=== PATIENT | female | born 2000 | race Caucasian/White ===

== ENCOUNTER → 2018-10-24 18:30 | Outpatient (REF) | payer OTHER, MEDICAID, SELFPAY | LOC: LAB 18:30 | PROVIDERS: Visit Provider Physician Assistant Medical | DX: N39.0 Urinary tract infection, site not specified (principal) | CPT/HCPCS: 87077; 87086; 87186 ==

== ENCOUNTER 2019-08-29 13:39 | Emergency (ER) | payer OTHER, MEDICAID, SELFPAY ==
[2019-08-29 13:55] VITALS: BP 135/87; PULSE 83; RESP 15; TEMP 37.3; O2SAT 100; BMI 41.3
[2019-08-29 15:18] VITALS: BP 122/71; PULSE 78; PULSE 80; O2SAT 99
--- NOTE | 2019-08-29 15:25 | ED_ITS ---
HPI - <ARSH Pagan - Last Filed: 08/29/19 21:25> General Chief complaint: OB/Uterine Contractions Stated complaint: bleeding at 8weeks preg Time Seen by Provider: 08/29/19 14:14 Source: patient Mode of arrival: Ambulatory Limitations: no limitations History of Present Illness HPI Narrative: 19-year-old female A1, who is currently 8 weeks , presents to the emergency department for reports of vaginal bleeding that lasted 1 to 5 minute last evening. She states it occurred after she had sexual intercourse. She states she has not had any bleeding since. She denies any pain, cramping, nausea, vomiting, fevers, chills, or other concerns at that time. Patient continues to denies symptoms at this time. She reports she is currently taking a vitamin but denies any other medications or significant medical history. Related Data Home Medications Medication Instructions Recorded Confirmed prenat.vits,trinity,[id number] 1 tab PO DAILY 09/08/19 09/08/19 Allergies Allergy/AdvReac Type Severity Reaction Status Date / Time No Known Drug Allergies Allergy Verified 08/29/19 13:55 Review of Systems <ARSH Pagan - Last Filed: 08/29/19 21:25> Review of Systems Narrative: REVIEW OF SYSTEMS: GENERAL: Denies fever, chills, malaise, or wt. loss. HENT: No head trauma. EYES: No vision changes. CARDIOVASCULAR: No chest pain. RESPIRATORY: No shortness of breath or cough. GASTROINTESTINAL: Denies abdominal pain. GENITOURINARY: No flank pain, urinary incontinence, hesitancy, frequency, or dysuria. Reports an episode of vaginal bleeding last night, see HPI. MUSCULOSKELETAL: No pain, weakness, or trauma. INTEGUMENTARY: No rash, lesions, or pruritus. NEURO: No numbness, tingling, memory loss, confusion, or headaches. PSYCH: No behavior or mood changes. PMFSH - <ARSH Pagan - Last Filed: 08/29/19 21:25> Past Medical History Medical history: Reports non-contributory Family History Family history: Reports no significant family history Exam <ARSH Pagan - Last Filed: 08/29/19 21:25> Initial Vital Signs Initial Vital Signs: Vital Signs Temperature 99.1 F 08/29/19 13:55 Pulse Rate 83 08/29/19 13:55 Respiratory Rate 15 08/29/19 13:55 Blood Pressure 135/87 08/29/19 13:55 Pulse Oximetry 100 08/29/19 13:55 PHYSICAL EXAMINATION: GENERAL: Well groomed, alert, and cooperative. Answers questions promptly and appropriately. Vital signs noted. HENT: Normocephalic, atraumatic. Hearing intact. Oral mucosa is pink and moist. EYES: Conjunctiva pink, sclera white, no periorbital swelling. CARDIOVASCULAR: S1 and S2 sounds normal. Regular rate and rhythm, no murmurs, clicks, or bruits. RESPIRATORY: Normal respiratory rate, trachea midline, airway patent. No stridor, nasal flaring or accessory muscle use. Lungs are clear in all [place] without wheeze, rhonchi, or crackles. GASTROINTESTINAL: Bowel sounds normoactive. Abdomen is soft and non-tender. No organomegaly, no palpable masses. GENITALURINARY: No flank tenderness. MUSCULOSKELETAL: Normal gait and coordination. Equal tone and mass bilaterally. EXTREMITIES: CMS intact. SKIN: Warm, dry, soft, appropriate color for ethnicity. No lesions, rashes, or wounds to visualized areas. NEURO: Alert and Oriented X 3. Good coordination. No ataxia, or sensory deficits, or cognitive issues. PSYCH: Appropriate affect and mood. <Maricel Dixon MD - Last Filed: 09/12/19 18:37> Initial Vital Signs Initial Vital Signs: Vital Signs Temperature 99.1 F 08/29/19 13:55 Pulse Rate 83 08/29/19 13:55 Respiratory Rate 15 08/29/19 13:55 Blood Pressure 135/87 08/29/19 13:55 Pulse Oximetry 100 08/29/19 13:55 Course <ARSH Pagan - Last Filed: 08/29/19 21:25> Course Course Narrative: Bedside external ultrasound was done by Dr. Dixon, a live intrauterine fetus was visualized with heart rate of 165. Orders Ordered: ED Orders 08/29/19 14:14 ABO RH Type Stat Complete Blood Count AUTO DIFF Stat Comprehensive Metabolic Panel Stat HCG Quantitative /Beta subunit Stat Consultations Consultation #1: Patient staffed with Dr. Dixon Vital Signs Vital signs: Vital Signs - 8 hr 08/29/19 13:55 08/29/19 15:18 Temperature 99.1 F Pulse Rate 83 80 Respiratory Rate 15 Blood Pressure 135/87 122/71 Blood Pressure [Left Arm] 122/71 Pulse Oximetry 100 99 <Maricel Dixon MD - Last Filed: 09/12/19 18:37> Orders Ordered: ED Orders 08/29/19 14:14 ABO RH Type Stat Complete Blood Count AUTO DIFF Stat Comprehensive Metabolic Panel Stat HCG Quantitative /Beta subunit Stat Vital Signs Vital signs: Vital Signs - 8 hr 08/29/19 13:55 08/29/19 15:18 Temperature 99.1 F Pulse Rate 83 80 Respiratory Rate 15 Blood Pressure 135/87 122/71 Blood Pressure [Left Arm] 122/71 Pulse Oximetry 100 99 MDM - OB/Uterine Contractions <ARSH Pagan - Last Filed: 08/29/19 21:25> Medical Records Attestation: I reviewed the patient's medical records. Lab Data Attestation: I reviewed the patient's lab results. Labs: Point of Care Testing Test Results Positive Urine Dip Bedside Urine Glucose Negative Bedside Urine Bilirubin - Negative Bedside Urine Ketone ++ 40 Urine Specific M[place] 1.020 Bedside Urine Occult Blood +/- Bedside Urine pH 7.0 Bedside Urine Protein - Negative Bedside Urine Urobilinogen - Negative Bedside Urine Nitrite - Negative Bedside Urine Leukocytes +/- 15 Esterase MDM Narrative Medical decision making narrative: 19-year-old female here for an episode of vaginal bleeding after intercourse. Bedside ultrasound performed by Dr. Dixon shows a live intrauterine with HR of 165. Bleeding has reso lved and patient has not had any cramping or pain. I suspect this is most likely bleeding from a cervical abrasion due to intercourse (bleeding was a small amount, but immediately after intercourse, no associated cramping or clots). Less likely due to miscarriage as stated above. Patient was encouraged to follow up with her OB. She was encouraged to return emergency department for any new or worsening symptoms. Patient agreed to plan of care verbalized understanding. <Maricel Dixon MD - Last Filed: 09/12/19 18:37> Lab Data Labs: Point of Care Testing Test Results Positive Urine Dip Bedside Urine Glucose Negative Bedside Urine Bilirubin - Negative Bedside Urine Ketone ++ 40 Urine Specific [place] 1.020 Bedside Urine Occult Blood +/- Bedside Urine pH 7.0 Bedside Urine Protein - Negative Bedside Urine Urobilinogen - Negative Bedside Urine Nitrite - Negative Bedside Urine Leukocytes +/- 15 Esterase Discharge Plan Departure Patient Disposition: Home Clinical Impression: Vaginal bleeding during Discharge Date/Time: 08/29/19 15:19 Instructions: DI for Vaginal Bleeding During Activity Restrictions/Additional Instructions: Thank you for entrusting me with your care today. As discussed, your ultrasound showed a healthy developing baby. I suspect that the bleeding that you experience was most likely caused by an abrasion or laceration under cervix, this is harmless. Please continue to monitor for worsening bleeding, cramping, high fevers, or other concerns-if these occur please return emergency department. Follow-up with your OB as scheduled. Prescriptions: No Action prenat.vits,trinity,[id number] Tablet 1 tab PO DAILY RF: 0
== END 2019-08-29 15:19 | disposition home or self-care (01) ==
PROVIDERS: Emergency Provider Nurse Practitioner
DX: O20.9 Hemorrhage in early pregnancy, unspecified (principal)
CPT/HCPCS: 81003; 81025; 99282

== ENCOUNTER → 2019-09-09 13:55 | Outpatient (CLI) | payer OTHER, MEDICAID, SELFPAY ==
[2019-09-09 15:46] LABS: Add Manual Diff / Slide Review NO; Basophils Absolute Auto 0 /uL (0-100); Basophils Percent Auto 0.4 % (0-2); Eosinophils Absolute Auto 0 /uL (0-450); Eosinophils Percent Auto 0.2 % (2-4); Hematocrit 42.5 % (36-46); Hemoglobin 14.6 g/dL (12.0-16.0); Lymphocytes Absolute Auto 2100 /uL (1100-4500); Lymphocytes Percent Auto 26.1 % (25-40); Mean Corpuscular HGB Conc 34.4 % (30-36); Mean Corpuscular Hemoglobin 30.2 PG (26-34); Mean Corpuscular Volume 87.6 fL (80-100); Monocytes Absolute Auto 400 /uL (0-900); Monocytes Percent Auto 4.7 % (3-14); Neutrophils Absolute Auto 5500 /uL (1500-7000); Neutrophils Percent Auto 68.6 % (50-75); Platelet Count 244 X10^3/uL (150-400); Red Blood Cell Count 4.85 X10^6/uL (4.0-5.2); Red Cell Distribution Width 13.3 % (11.6-14.8); White Blood Cell Count 8.1 X10^3/uL (4.5-11.0)
[2019-09-09 16:21] LABS: Appearance Urine UA SL CLOUDY; Bilirubin Urine UA NEGATIVE (NEGATIVE); Color Urine UA YELLOW; Glucose Urine UA NEGATIVE (Negative); Ketones Urine UA TRACE (NEGATIVE); Leukocyte Esterase Urine UA NEGATIVE (NEGATIVE); Nitrite Urine UA NEGATIVE (Negative); Occult Blood Urine UA TRACE-LYSED (Negative); Protein Urine UA NEGATIVE (Negative); Specific Gravity Urine UA 1.015 (1.000-1.035); Urobilinogen Urine UA 0.2 E.U./dL (0.2)
[2019-09-09 17:50] LABS: HIV 1 & 2 Ab/Ag 4th Gen Combo NEGATIVE (NEGATIVE); Hep C Virus Ab w/Reflex Quant NEGATIVE s/c (NEGATIVE); Hepatitis B Surface Antigen NEGATIVE s/c (NEGATIVE); Rubella Antibody IgG 38.7 IU/mL (>15)
[2019-09-11 19:40] LABS: RPR Screen Nonreactive (Nonreactive)
[2019-09-12 13:55] LABS: Varicella IgG Antibody < 135.00 Index (< 135.00)
== END ==
PROVIDERS: PCP Family Medicine; Referring Provider Family Medicine; Visit Provider Family Medicine
DX: Z34.01 Encounter for supervision of normal first pregnancy, first trimester (principal)
CPT/HCPCS: 36415; 80055; 81003; 86787; 86803; 86850; 86900; 86901; 87086; 87389

== ENCOUNTER → 2019-11-23 11:14 | Outpatient (CLI) | payer OTHER, MEDICAID, SELFPAY ==
--- NOTE | 2019-11-23 11:17 | DI.US.S_ITS ---
PROCEDURE: US OB >= 14 WEEKS FETUS INDICATIONS: ANATOMY SCAN 20 WEEK OUTSIDE/PRIOR DATING DATA: Last menstrual period (LMP): 07/05/19. LMP-based estimated date of delivery (MONIKA): 04/10/20. First dating scan (date and location): 11/23/19. Estimated date of delivery (MONIKA) from first dating scan: 04/22/20. TECHNIQUE: Real-time scanning was performed of the fetus, with image documentation and biometric measurements. COMPARISON: None. FINDINGS: General: A single live intrauterine gestation is present. Presentation: Variable. Placenta: Placental position is posterior, and low lying, without tay previa. Amniotic fluid index: 13.4 cm, normal range is 5-24 cm. heart rate: 147 beats per minute. Maternal cervical canal: 3.7 cm long. Normal lower limit is 2.5 cm. biometrics: Biparietal diameter: 4.2 cm equals 18 weeks 6 days Head circumference: 15.7 cm equals 18 weeks 4 days Abdominal circumference: 13.3 cm equals 18 weeks 6 days Femur length: 2.6 cm equals 18 weeks 0 days Estimated gestational age from initial scan: 20 weeks 1 day Composite gestational age from present scan: 18 weeks 3 days Estimated weight and percentile: 241 g, 1st percentile Measurement variability for biometric dating: +/- 7 days from 14 weeks to 15 weeks 6 days gestation, +/- 10 days from 16 weeks to 21 weeks 6 days gestation, +/- 2 weeks from 22 weeks to 27 weeks 6 days gestation, +/- 3 weeks for 28 weeks gestation or later. weight reference: 4500 g or EFW >90/95% is considered macrosomia or large for gestational age. EFW <10% is small for gestational age. EFW 5% or less is considered intra-uterine growth restriction. Anatomic survey: Neuro: Ventricles are non-dilated at less than 10 mm. Cisterna magna is normal at 3-11 mm. Cerebellum is normal in size and morphology. Nuchal skin fold: Normal at less than 6 mm between 14-21 weeks gestational age. Face: Nose and lips, facial profile are normal. Spine: No evidence for spina bifida. Heart: 4-chambered heart is present, with normal ventricular outflow tracts. Diaphragm: Diaphragm is intact. Stomach: Left-sided stomach is present. Kidneys: Dilated left renal pelvis can be seen, measuring 5 mm. The right renal pelvis is within normal limits at 3 mm. Normal is less than 5 mm in 2nd trimester, less than 7 mm in 3rd trimester. Cord: 3-vessel cord has orthotopic insertion. Bladder: Normal in size. Extremities: All 4 extremities identified. IMPRESSION: The fetus measures small for the given last menstrual period dating, at the 1st percentile. Mild dilatation of the left renal pelvis can be seen. The placenta is low lying, yet without tay previa. Dictated by: Robb Blair M.D. on 11/23/2019 at 14:55 Approved by: Robb Blair M.D. on 11/23/2019 at 14:59
== END ==
PROVIDERS: PCP Family Medicine; Referring Provider Family Medicine; Visit Provider Family Medicine
DX: Z34.82 Encounter for supervision of other normal pregnancy, second trimester (principal); Z3A.18 18 weeks gestation of pregnancy
CPT/HCPCS: 76811

== ENCOUNTER → 2020-01-25 10:43 | Outpatient (CLI) | payer OTHER, MEDICAID, SELFPAY ==
[2020-01-25 12:27] LABS: Add Manual Diff / Slide Review NO; Basophils Absolute Auto 0 /uL (0-100); Basophils Percent Auto 0.3 % (0-2); Eosinophils Absolute Auto 0 /uL (0-450); Eosinophils Percent Auto 0.4 % (2-4); Hematocrit 38.2 % (36-46); Hemoglobin 13.2 g/dL (12.0-16.0); Lymphocytes Absolute Auto 2100 /uL (1100-4500); Lymphocytes Percent Auto 19.9 % (25-40); Mean Corpuscular HGB Conc 34.4 % (30-36); Mean Corpuscular Hemoglobin 30.6 PG (26-34); Mean Corpuscular Volume 88.9 fL (80-100); Monocytes Absolute Auto 500 /uL (0-900); Monocytes Percent Auto 5.2 % (3-14); Neutrophils Absolute Auto 7700 /uL (1500-7000); Neutrophils Percent Auto 74.2 % (50-75); Platelet Count 212 X10^3/uL (150-400); Red Blood Cell Count 4.29 X10^6/uL (4.0-5.2); Red Cell Distribution Width 13.6 % (11.6-14.8); White Blood Cell Count 10.4 X10^3/uL (4.5-11.0)
[2020-01-25 12:56] LABS: GTT (PREG) 1 Hour PP 50gm Dose 112 mg/dL (76-139)
== END ==
PROVIDERS: PCP Family Medicine; Referring Provider Family Medicine; Visit Provider Family Medicine
DX: Z34.90 Encounter for supervision of normal pregnancy, unspecified, unspecified trimester (principal); Z3A.25 25 weeks gestation of pregnancy
CPT/HCPCS: 36415; 82950; 85025

== ENCOUNTER → 2020-02-08 10:45 | Outpatient (CLI) | payer OTHER, MEDICAID, SELFPAY | PROVIDERS: PCP Family Medicine; Referring Provider Family Medicine; Visit Provider Family Medicine | DX: O26.899 Other specified pregnancy related conditions, unspecified trimester (principal); Z67.91 Unspecified blood type, Rh negative; Z3A.31 31 weeks gestation of pregnancy | CPT/HCPCS: 36415; 86850 ==

== ENCOUNTER 2020-03-21 11:01 | Outpatient (CLI) | payer OTHER, MEDICAID, SELFPAY ==
--- NOTE | 2020-03-21 11:30 | P.TNLD_ITS ---
Visit Information Visit Information Date of evaluation: 03/21/20 Primary OB Provider: Shira Elena Reason for Evaluation: Yes non-stress test non-stress test reason: other (concern for IUGR) and Yes other Comments/Additional reasons for admission: 20yo at 36w2d here for NST due to concern for IUGR. Pt previously with IUGR seen on anatomy scan. Multiple f/u growth scans suggestive of change of MONIKA with MFM. MONIKA changed to 04/16, baby now in normal growth range. However, due to initial NSTs completed they recommended continuing with weekly NST until IOL at 39 weeks. BP also elevated in clinic to 140/80 and 140/85. Pre-eclampsia labs to be completed. [facility] Medical History (Updated 03/21/20 @ 11:34 by Shira Elena MD) Acne (Inactive) Chronic headaches (Acute) Depression with anxiety (Acute) Surgical History (Updated 09/30/19 @ 20:45 by Medina Trujillo) Toenail avulsion (Acute) Family History (Updated 09/08/19 @ 12:20 by May Walker RN) Mother Depression Gestational diabetes Father Unknown whether patient has any health problems Grandmother No problems noted. Grandfather No problems noted. Grandfather No problems noted. Grandmother No problems noted. Social History marital status: unmarried,living together household members: significant other housing: apartment pets and animals: No education level: high school occupational status: unemployed current occupational exposures/hazards: No special lubna needs: No leisure activities: exercise Smoking Status: Never smoker second hand exposure: No alcohol intake: former substance use type: former substance user and marijuana Objective Labs Result Diagrams: 03/21/20 12:22 03/21/20 12:22 Evaluation Evaluation Baseline heart rate: 150 Variability: Moderate (11-25) monitor accelerations: Present monitor decelerations: Absent Category of Tracing: Reactive Diagnosis, Plan/Disposition Final Diagnosis (1) Elevated blood pressure affecting in third trimester, antepartum: Status: Acute (2) IUGR (intrauterine growth restriction): Status: Acute Plan/Disposition Plan: NST reactive. Continue with weekly NSTs. BP normal in L&D with normal labs. Discussed pre-eclampsia signs/symptoms in clinic already. Pt to f/u in clinic next week as scheduled. OB Disposition: home
[2020-03-21 12:25] LABS: Add Manual Diff / Slide Review NO; Basophils Absolute Auto 0 /uL (0-100); Basophils Percent Auto 0.1 % (0-2); Eosinophils Absolute Auto 0 /uL (0-450); Eosinophils Percent Auto 0.3 % (2-4); Hematocrit 37.2 % (36-46); Hemoglobin 12.2 g/dL (12.0-16.0); Lymphocytes Absolute Auto 1900 /uL (1100-4500); Lymphocytes Percent Auto 19.2 % (25-40); Mean Corpuscular HGB Conc 32.9 % (30-36); Mean Corpuscular Hemoglobin 27.9 PG (26-34); Mean Corpuscular Volume 84.8 fL (80-100); Monocytes Absolute Auto 400 /uL (0-900); Monocytes Percent Auto 3.9 % (3-14); Neutrophils Absolute Auto 7600 /uL (1500-7000); Neutrophils Percent Auto 76.5 % (50-75); Platelet Count 215 X10^3/uL (150-400); Red Blood Cell Count 4.39 X10^6/uL (4.0-5.2); Red Cell Distribution Width 14.3 % (11.6-14.8)
[2020-03-21 12:47] LABS: Aspartate Aminotransferase 20 IU/L (14-36); BUN Creatinine Ratio 16.3 (6-22); Blood Urea Nitrogen 7 mg/dL (7-17); Creatinine Urine Random 99.4 mg/dL; Estimated Glomerular Filt Rate > 60.0 mL/min (>60); Protein (Total) Urine Random 9 mg/dL (0-12); Protein Creatinine Ratio Urine 0.09 GRAM/24H; Uric Acid 4.5 mg/dL (2.5-6.2)
== END 2020-03-21 12:33 | disposition home or self-care (01) ==
LOC: LABOR 11:21 → OB 03-22 09:29
PROVIDERS: PCP Family Medicine; Referring Provider Family Medicine; Visit Provider Family Medicine
DX: O36.5930 Maternal care for other known or suspected poor fetal growth, third trimester, not applicable or unspecified (principal); R03.0 Elevated blood-pressure reading, without diagnosis of hypertension; O26.893 Other specified pregnancy related conditions, third trimester; Z3A.36 36 weeks gestation of pregnancy
CPT/HCPCS: 59025; 59050; 82570; 84156; 84450; 84550; 85025; 87653; G0378; G0379

== ENCOUNTER → 2020-03-21 11:01 | Outpatient (CLI) | payer OTHER, MEDICAID, SELFPAY ==
[2020-03-21 14:40] LABS: Strep Grp B PCR NEG for Grp B Strep
== END ==
PROVIDERS: PCP Family Medicine; Visit Provider Family Medicine
DX: Z34.03 Encounter for supervision of normal first pregnancy, third trimester (principal)
CPT/HCPCS: 87653

== ENCOUNTER 2020-03-29 10:49 | Outpatient (CLI) | payer OTHER, MEDICAID, SELFPAY ==
--- NOTE | 2020-03-29 11:18 | P.TNLD_ITS ---
Visit Information Visit Information Date of evaluation: 03/29/20 Primary OB Provider: Shira Elena Reason for Evaluation: Yes non-stress test non-stress test reason: other (concern for IUGR) Comments/Additional reasons for admission: 20yo at 37w3d here for NST due to concern for IUGR. Pt previously with IUGR seen on anatomy scan. Multiple f/u growth scans suggestive of change of MONIKA with MFM. MONIKA changed to 04/16, baby now in normal growth range. However, due to initial NSTs completed they recommended continuing with weekly NST until IOL at 39 weeks. [facility] Medical History (Updated 03/29/20 @ 11:22 by Shira Elena MD) Acne (Inactive) Chronic headaches (Acute) Depression with anxiety (Acute) Surgical History (Updated 09/30/19 @ 20:45 by Medina Trujillo) Toenail avulsion (Acute) Family History (Updated 09/08/19 @ 12:20 by May Walker RN) Mother Depression Gestational diabetes Father Unknown whether patient has any health problems Grandmother No problems noted. Grandfather No problems noted. Grandfather No problems noted. Grandmother No problems noted. Social History marital status: unmarried,living together household members: significant other housing: apartment pets and animals: No education level: high school occupational status: unemployed current occupational exposures/hazards: No special lubna needs: No leisure activities: exercise Smoking Status: Never smoker second hand exposure: No alcohol intake: former substance use type: former substance user and marijuana Evaluation Evaluation Baseline heart rate: 150 Variability: Moderate (11-25) monitor accelerations: Present monitor decelerations: Absent Category of Tracing: Reactive Diagnosis, Plan/Disposition Final Diagnosis (1) IUGR (intrauterine growth restriction): Status: Acute Plan/Disposition Plan: NST reactive. Continue with weekly NSTs. BP normal in L&D with normal labs. Discussed pre-eclampsia signs/symptoms in clinic already. Pt to f/u in clinic next week as scheduled. OB Disposition: home
== END 2020-03-29 11:20 | disposition home or self-care (01) ==
LOC: LABOR 11:02 → OB 03-30 11:49
PROVIDERS: PCP Family Medicine; Referring Provider Family Medicine; Visit Provider Family Medicine
DX: O36.5930 Maternal care for other known or suspected poor fetal growth, third trimester, not applicable or unspecified (principal); Z3A.37 37 weeks gestation of pregnancy
CPT/HCPCS: 59025; G0378; G0379

== ENCOUNTER 2020-04-04 11:31 | Outpatient (CLI) | payer OTHER, MEDICAID, SELFPAY ==
--- NOTE | 2020-04-04 12:02 | P.TNLD_ITS ---
Visit Information Visit Information Date of evaluation: 04/04/20 Primary OB Provider: Shira Elena Reason for Evaluation: Yes non-stress test non-stress test reason: other (20yo at 38w2d here for NST due to concern for IUGR. Pt previously with IUGR seen on anatomy scan. Multiple f/u growth scans suggestive of change of MONIKA with MFM. MONIKA changed to 04/16, baby now in normal growth range. However, due to initial NSTs completed they recommended continuing with wee) COUNT [facility]CLUDES [facility] Medical History (Updated 03/29/20 @ 11:22 by Shira Elena MD) Acne (Inactive) Chronic headaches (Acute) Depression with anxiety (Acute) Surgical History (Updated 09/30/19 @ 20:45 by Medina Trujillo) Toenail avulsion (Acute) Family History (Updated 09/08/19 @ 12:20 by May Walker RN) Mother Depression Gestational diabetes Father Unknown whether patient has any health problems Grandmother No problems noted. Grandfather No problems noted. Grandfather No problems noted. Grandmother No problems noted. Social History marital status: unmarried,living together household members: significant other housing: apartment pets and animals: No education level: high school occupational status: unemployed current occupational exposures/hazards: No special lubna needs: No leisure activities: exercise Smoking Status: Never smoker second hand exposure: No alcohol intake: former substance use type: former substance user and marijuana Evaluation Evaluation Baseline heart rate: 135 Variability: Moderate (11-25) monitor accelerations: Present monitor decelerations: Absent Category of Tracing: Reactive Diagnosis, Plan/Disposition Final Diagnosis (1) IUGR (intrauterine growth restriction): Status: Acute Plan/Disposition Plan: NST reactive. Pt to f/u for IOL next week. OB Disposition: home
== END 2020-04-04 12:04 | disposition home or self-care (01) ==
LOC: LABOR 11:42 → OB 04-05 14:16
PROVIDERS: PCP Family Medicine; Referring Provider Family Medicine; Visit Provider Family Medicine
DX: O36.5930 Maternal care for other known or suspected poor fetal growth, third trimester, not applicable or unspecified (principal); Z3A.38 38 weeks gestation of pregnancy
CPT/HCPCS: 59025; G0378; G0379

== ENCOUNTER → 2020-04-08 14:34 | Outpatient (CLI) | payer OTHER, MEDICAID, SELFPAY ==
[2020-04-10 15:09] LABS: COVID19 Sendout Not Detected (Not Detect)
== END ==
PROVIDERS: PCP Family Medicine; Visit Provider Physician Assistant
DX: Z11.59 Encounter for screening for other viral diseases (principal)
CPT/HCPCS: 87635

== ENCOUNTER 2020-04-11 18:09 | Inpatient (IN) | payer OTHER, MEDICAID, SELFPAY ==
[2020-04-11] MEDS: DINOPROSTONE VAG (CERVIDIL) 10 MG VAG (19:36)
[2020-04-11] MEDS: LACTATED RINGERS 1,000 ML 100 ML IV (21:42)
[2020-04-11 21:43] VITALS: BP 126/78
[2020-04-11 22:09] LABS: Add Manual Diff / Slide Review NO; Basophils Absolute Auto 100 /uL (0-100); Basophils Percent Auto 0.5 % (0-2); Eosinophils Absolute Auto 0 /uL (0-450); Eosinophils Percent Auto 0.4 % (2-4); Hematocrit 39.4 % (36-46); Hemoglobin 12.7 g/dL (12.0-16.0); Lymphocytes Absolute Auto 3700 /uL (1100-4500); Lymphocytes Percent Auto 30.2 % (25-40); Mean Corpuscular HGB Conc 32.3 % (30-36); Mean Corpuscular Volume 83.6 fL (80-100); Monocytes Absolute Auto 900 /uL (0-900); Monocytes Percent Auto 7.1 % (3-14); Neutrophils Absolute Auto 7600 /uL (1500-7000); Neutrophils Percent Auto 61.8 % (50-75); Platelet Count 271 X10^3/uL (150-400); Red Blood Cell Count 4.71 X10^6/uL (4.0-5.2); Red Cell Distribution Width 15.4 % (11.6-14.8); White Blood Cell Count 12.3 X10^3/uL (4.5-11.0)
[2020-04-11] MEDS: fentaNYL 100 MCG/2 ML INJ 50 MCG IV (23:49)
[2020-04-12] MEDS: fentaNYL 100 MCG/2 ML INJ 50 MCG IV ×3 (02:09→14:02)
[2020-04-12] MEDS: OXYTOCIN PREMIX 30 UNIT/500 ML PLAST..BAG IV (08:07)
--- NOTE | 2020-04-12 08:09 | P.HPOB_ITS ---
OB HPI Date/Time Date of admission: 04/11/20 Date Patient Seen: 04/12/20 Time Patient Seen: 07:45 History of Present Condition Chief complaint: Induction : 2 Para: 0 Estimated Date of Delivery: 04/16/20 Estimated Gestational Age (weeks): 39w3d Narrative: Pina Munoz is a 20 year old at 39w3d who presents for IOL. The pts was complicated by IUGR noted on anatomy scan. Repeated f/u imaging with MFM showed EDC of 04/16, without evidence of IUGR with new dating. Recommendation was made to change EDC to 04/16. Due to initiating testing prior to this determination, weekly NSTs were recommended, and recommended delivery around 39 weeks. The pt reports feeling baby move regul linda. No LOF of vaginal bleeding. Indications Indication for induction OB: other History of Present care: good care Dating criteria: based on 2nd trimester US only Ultrasounds: normal 1st trimester US and abnormal US findings (IUGR on anatomy scan as above, low-lying placenta resolved on repeat imaging) Obstetrical complications: none Medical complications: none Preadmission Labs Blood type: A (-) negative (Rhogam received 02/08/20) -: Antibody screen: negative, GBS status: negative, HBsAG: negative, HIV: negative and RPR/VDLR: negative -: Rubella: immune and Varicella: not immune HCT: 39.4 HCAB: negative Cell-free DNA: Negative Urine: Negative 1 hr GTT: 112 Prior (ies) History: 08/2012 - elective Evaluation Evaluation Baseline heart rate: 135 Variability: Moderate (11-25) monitor accelerations: Present monitor decelerations: Absent Uterine Contraction Intensity: Mild Cervical dilation (cm): 2 Cervical effacement (%): 50 station: -2 Laboratory results: Laboratory Tests 04/11/20 04/11/20 21:30 21:30 WBC 12.3 H RBC 4.71 Hgb 12.7 Hct 39.4 MCV 83.6 MCH 27.0 MCHC 32.3 RDW 15.4 H Plt Count 271 Neut % (Auto) 61.8 Lymph % (Auto) 30.2 [place] % (Auto) 7.1 Eos % (Auto) 0.4 L Baso % (Auto) 0.5 Neut # (Auto) 7600 H Lymph # (Auto) 3700 [place] # (Auto) 900 Eos # (Auto) 0 Baso # (Auto) 100 Blood Type A Negative Antibody Screen Negative Comments: Irregular contractions [facility] Medical History (Updated 03/29/20 @ 11:22 by Shira Elena MD) Acne (Inactive) Chronic headaches (Acute) Depression with anxiety (Acute) Surgical History (Updated 09/30/19 @ 20:45 by Medina Trujillo) Toenail avulsion (Acute) Family History (Updated 09/08/19 @ 12:20 by May Walker RN) Mother Depression Gestational diabetes Father Unknown whether patient has any health problems Grandmother No problems noted. Grandfather No problems noted. Grandfather No problems noted. Grandmother No problems noted. Social History marital status: unmarried,living together household members: significant other housing: apartment pets and animals: No education level: high school occupational status: unemployed current occupational exposures/hazards: No special lubna needs: No leisure activities: exercise Smoking Status: Never smoker second hand exposure: No alcohol intake: former substance use type: former substance user and marijuana Meds Home Medications and Allergies Home Medications Medication Instructions Recorded Confirmed Type prenat.vits,trinity,oje-zaxv-nocan 1 tab PO DAILY 09/08/19 04/11/20 History Allergies Allergy/AdvReac Type Severity Reaction Status Date / Time No Known Drug Allergies Allergy Verified 04/11/20 21:43 Exam Const General: cooperative, healthy appearing and comfortable Nutritional Appearance: obese Resp Effort & Inspection: normal respiratory effort Auscultation: clear to auscultation bilaterally Cardio Rate: regular rate Rhythm: regular rhythm Heart Sounds: S1 normal, S2 normal and no murmurs GI Palpation: soft and No tender Other: gravid Objective Labs Result Diagrams: 04/11/20 21:30 Labs: Laboratory Results - last 24 hr 04/11/20 04/11/20 21:30 21:30 WBC 12.3 H RBC 4.71 Hgb 12.7 Hct 39.4 MCV 83.6 MCH 27.0 MCHC 32.3 RDW 15.4 H Plt Count 271 Neut % (Auto) 61.8 Lymph % (Auto) 30.2 [place] % (Auto) 7.1 Eos % (Auto) 0.4 L Baso % (Auto) 0.5 Neut # (Auto) 7600 H Lymph # (Auto) 3700 [place] # (Auto) 900 Eos # (Auto) 0 Baso # (Auto) 100 Blood Type A Negative Antibody Screen Negative Assessment and Plan Assessment and Plan Assessment and Plan narrative: 20yo at 39w3d here for IOL due to early concern for IUGR, now with appropriate growth after dating change, but MFM recommending delivery at 39wks. Rh negative, GBS negative. Received Cervidil overnight for only 2 hours, removed due to frequency of contractions. - Start pitocin, titrate as tolerated - Expectant management, anticipate - GBS negative, no prophylaxis - Epidural for pain control when desired - FHT reassuring - Cord blood for Rh status after delivery
--- NOTE | 2020-04-12 12:31 | PM.OBPNLAB ---
Date/Time Date Patient Seen: 04/12/20 Time Patient Seen: 12:31 Pelvic Exam Dilation (cm): 3 Effacement (%): 50 station: -1 Amniotic membrane status: Ruptured Comments: After informed consent, AROM performed with production of copious clear fluid Contractions Contractions on admission: none Monitor mode: External Pitocin rate (mU/min): 12 Contraction frequency (min): 2 Contraction pattern: Irregular Contraction intensity: Mild Status status: Category l Heart Rate Baseline: 145 Monitor Accelerations: Present Monitor Decelerations: Absent Monitor Variability: Moderate Assessment and Plan Comments: 20yo at 39w3d here for IOL due to early concern for IUGR, now with appropriate growth after dating change, but MFM recommending delivery at 39wks. Rh negative, GBS negative. Received Cervidil overnight for only 2 hours, removed due to frequency of contractions. Now on pitocin, with AROM performed with clear fluid. Minimal cervical change thus far. - Continue pitocin, titrate as tolerated - Expectant management, anticipate - GBS negative, no prophylaxis - Epidural for pain control when desired - FHT reassuring - Cord blood for Rh status after delivery
[2020-04-12] MEDS: ONDANSETRON 4 MG/2 ML INJ IV (14:02)
--- NOTE | 2020-04-12 19:50 | P.PCNOB_ITS ---
Labor & Delivery Delivery date: 04/12/20 Episiotomy description: None Estimated blood loss (mL): 200 Complications: None Narrative: PROCEDURE: at 39w2d presented for IOL due to early concern for IUGR with redating and was admitted to Labor and Delivery. The patient progressed through the 1st stage over 5.5 hours. She had Cervidil placed briefly, which was then removed due to tachysystole. Pitocin was initiated and titrated up. Pain was controlled with an epidural. AROM was performed with production of clear fluid. The patient progressed through the 2nd stage over 1.5 hours and delivered a viable male infant with APGARs 9/9 at 19:27 via without complications. The cord was clamped and cut after it stopped pulsating. The perineum and vagina were inspected with no lacerations. PREPROCEDURE DIAGNOSIS: Intrauterine at 39w2d GBS negative RH negative POSTPROCEDURE DIAGNOSIS: Intrauterine at 39w3d, delivered Same as preprocedure INDUCTION: Yes, Cervidil LABOR AUGMENTATION: Pitocin, AROM ROM APPEARANCE: Clear BABY A DELIVERY TIME: 19:27 BABY A OUTCOME: Viable BABY A SEX: Male BABY A WEIGHT: [id number] BABY A PRESENTATION: Vertex BABY A POSITION: OA BABY A NUCHAL CORD: None BABY A # CORD VESSELS: 3 PLACENTA DELIVERY TIME: 19:41 PLACENTAL DELIVERY TYPE: Spontaneous PLACENTA APPEARANCE: Intact [place] Baby 1: Infant gender: Male Presentation: vertex score (1 min): 9 score (5 min): 9 Plan for aftercare: Normal care
[2020-04-13] MEDS: PRENATAL VIT,CALC/IRON/FOLIC 1 TABLET 1 TAB PO (12:11)
--- NOTE | 2020-04-13 13:54 | P.DS_ITS ---
Discharge Providers Provider Date of admission: 04/11/20 18:09 Discharge Date: 04/13/20 Primary care physician: Shira Elena MD Consults: 04/13/20 19:49 Consult to Child Development Director Routine Comment: Discharge provider: Shira Elena MD Summary Hospital Course Date Patient Seen: 04/13/20 Time Patient Seen: 12:30 Procedures: Spontaneous vaginal delivery Hospital Course: The patient presented for induction of labor. She received Cervidil for induction, and then Pitocin. AROM was performed with production of clear fluid. She received an epidural for pain control. The patient progressed to complete and had a spontaneous vaginal delivery of a viable baby boy at 7:27 p.m. on 04/12/2020. There were no lacerations. , there were no complications. At the time of discharge she was voiding, any bleeding, and passing flatus without difficulty. Her lochia was decreasing appropriately. Her pain was adequately controlled. She was breast-feeding with the use of a nipple shield and using hand expression and pumping as well. She will follow-up with . The patient will follow-up in clinic in 6 weeks for check. She is undecided regarding control, but will likely desire OCPs. Peripartum Data Delivery Method: Natural Vaginal Laceration Description: None Episiotomy description: None Procedures: Spontaneous vaginal delivery complications: none [place] 1: Gender: Male Disposition of : home Time Spent with Patient Time attestation: Total time spent providing and/or coordinating discharge services: Objective Labs Result Diagrams: 04/11/20 21:30 Labs: Laboratory Results - last 24 hr 04/13/20 06:25 Maternal Bleed Negative Discharge Plan Discharge Plan Patient Disposition: Home Discharge orders & Medications Prescriptions: Continued prenat.vits,trinity,[id number] Tablet 1 tab PO DAILY RF: 0 Follow up/Referrals: Shira Elena MD [Primary Care Provider] - 6 Weeks Diet/Activity/Treatments Diet: Diet as Tolerated and Regular Skin/Wound/Dressing Care Report to your healthcare provider any signs of infection, such as:: chills, fever, increased pain and unusual drainage Visit Report/Discharge Packet Instructions: DI for Labor and Delivery, Vaginal Visit Report Forms: Patient Portal/API, Stroke Signs & Symptoms Discharge Data Primary Care Provider: Shira Elena
[2020-04-13 15:58] VITALS: BP 116/69; PULSE 81; RESP 16; TEMP 36.9
[2020-04-13] MEDS: RHO(D) IMMUNE GLOBULIN 1,500 UNIT SYRINGE 1500 UNIT IM (17:05)
[2020-04-14] MEDS: ACETAMINOPHEN 325 MG TABLET 650 MG PO (04:40)
--- NOTE | 2020-04-14 09:33 | PM.OBPN.1 ---
Subjective - OB Subjective Narrative: Pt elected to stay overnight to work on . Continue to pass flatus, void, ambulate without difficulty. improved. Date Patient Seen: 04/14/20 Time Patient Seen: 08:00 Exam Narrative Exam Narrative: General: No acute distress, sitting comfortably in bed CV: Regular rate and rhythm, no murmur Respiratory: Clear to auscultation bilaterally Abdomen: Soft, nontender, fundus firm below the umbilicus, normoactive bowel sounds Extremities: Trace edema Objective Labs Result Diagrams: 04/11/20 21:30 Assessment & Plan Plan Comments: 20-year-old day 2. Status post spontaneous vaginal delivery. Patient doing well. Stable for discharge today. See discharge note from yesterday for additional details. Time Spent With Patient Time: Total time spent is greater than 50% in coordination of care (as documented) at patient's floor/unit and/or counseling patient: Time with patient: 15-24 minutes
== END 2020-04-14 10:20 | disposition home or self-care (01) | DRG 560 ==
PROVIDERS: Admitting Provider Family Medicine; PCP Family Medicine; Referring Provider Family Medicine; Visit Provider Family Medicine
DX: O80 Encounter for full-term uncomplicated delivery (principal); Z37.0 Single live birth; Z3A.39 39 weeks gestation of pregnancy
CPT/HCPCS: 01967; 36415; 59050; 59200; 59409; 85025; 85461; 86850; 86900; 86901; G0379; J2405; J2590; J2790; J3010

== ENCOUNTER → 2021-10-16 14:04 | Outpatient (CLI) | payer OTHER, MEDICAID, SELFPAY ==
[2021-10-16 15:34] LABS: Add Manual Diff / Slide Review NO; Basophils Absolute Auto 100 /uL (0-100); Basophils Percent Auto 0.5 % (0-2); Eosinophils Absolute Auto 0 /uL (0-450); Eosinophils Percent Auto 0.3 % (2-4); Hematocrit 39.8 % (36-46); Hemoglobin 13.1 g/dL (12.0-16.0); Lymphocytes Absolute Auto 3100 /uL (1100-4500); Lymphocytes Percent Auto 25.7 % (25-40); Mean Corpuscular Hemoglobin 27.4 PG (26-34); Mean Corpuscular Volume 82.8 fL (80-100); Monocytes Absolute Auto 500 /uL (0-900); Monocytes Percent Auto 4.1 % (3-14); Neutrophils Absolute Auto 8300 /uL (1500-7000); Neutrophils Percent Auto 69.4 % (50-75); Platelet Count 247 X10^3/uL (150-400); Red Blood Cell Count 4.81 X10^6/uL (4.0-5.2); Red Cell Distribution Width 15.1 % (11.6-14.8); White Blood Cell Count 11.9 X10^3/uL (4.5-11.0)
[2021-10-16 15:40] LABS: Appearance Urine UA CLEAR; Bilirubin Urine UA NEGATIVE (NEGATIVE); Color Urine UA YELLOW; Glucose Urine UA NEGATIVE (Negative); Ketones Urine UA TRACE (NEGATIVE); Leukocyte Esterase Urine UA 1+ (NEGATIVE); Nitrite Urine UA NEGATIVE (Negative); Occult Blood Urine UA TRACE-LYSED (Negative); Protein Urine UA TRACE (Negative); Specific Gravity Urine UA >=1.030 (1.000-1.035); Urobilinogen Urine UA 0.2 E.U./dL (0.2)
[2021-10-16 16:48] LABS: Bacteria Urine Few (2-10); RBC Urine 0-1/HPF (0-5/HPF); Squamous Epithelial Cell Urine 1-5 /HPF (0-5/HPF); WBC Urine 5-10/HPF (0-5/HPF)
[2021-10-16 17:51] LABS: Hepatitis B Surface Antigen NEGATIVE s/c (NEGATIVE); Rubella Antibody IgG 25.8 IU/mL (>15)
[2021-10-16 18:08] LABS: HIV 1 & 2 Ab/Ag 4th Gen Combo NEGATIVE (NEGATIVE); Hep C Virus Ab w/Reflex Quant NEGATIVE s/c (NEGATIVE)
[2021-10-17 04:37] LABS: RPR Screen Non Reactive (Non Reactive)
[2021-10-17 15:46] LABS: Varicella IgG Antibody <135 index (Immune >165)
== END ==
PROVIDERS: PCP Family Medicine; Referring Provider Family Medicine; Visit Provider Family Medicine
DX: Z34.80 Encounter for supervision of other normal pregnancy, unspecified trimester (principal)
CPT/HCPCS: 36415; 80055; 81003; 81015; 86787; 86803; 86850; 86900; 86901; 87086; 87389

== ENCOUNTER → 2021-11-17 10:39 | Outpatient (CLI) | payer OTHER, MEDICAID, SELFPAY | PROVIDERS: PCP Family Medicine; Visit Provider Family Medicine | DX: N39.0 Urinary tract infection, site not specified (principal) | CPT/HCPCS: 87086 ==

== ENCOUNTER → 2022-01-04 12:11 | Outpatient (CLI) | payer OTHER, MEDICAID, SELFPAY ==
--- NOTE | 2022-01-04 12:12 | DI.US.S_ITS ---
PROCEDURE: US OB >= 14 WEEKS FETUS INDICATIONS: ANATOMY OUTSIDE/PRIOR DATING DATA: Last menstrual period (LMP): Not available. LMP-based estimated date of delivery (MONIKA): Not available. First dating scan (date and location): 01/04/2022 at . Estimated date of delivery (MONIKA) from first dating scan: 05/17/2022. TECHNIQUE: Real-time scanning was performed of the fetus, with image documentation and biometric measurements. Endovaginal scanning: Not performed. COMPARISON: [facility], , OB >= 14 WEEKS FETUS, 11/23/2019, 11:37. FINDINGS: General: A single living intrauterine gestation is present. Presentation: Vertex. Placenta: Placental position is posterior with marginal previa. Amniotic fluid index: 16.9 cm, normal range is 5-24 cm. Single deepest vertical pocket is 4.3 cm. heart rate: 132 beats per minute. Maternal cervical canal: 5.5 cm long. Normal lower limit is 2.5 cm. biometrics: Biparietal diameter: 20 weeks 5 days Head circumference: 20 weeks 5 days Abdominal circumference: 21 weeks 4 days Femur length: 21 weeks 0 day Clinically estimated gestational age: n.a. Composite gestational age from present scan: 21 weeks 0 day Estimated weight and percentile: 480 g Anatomic survey: Neuro: Ventricles are non-dilated at less than 10 mm. Cisterna magna is normal at 3-11 mm. Cerebellum is normal in size and morphology. Nuchal skin fold: Normal at less than 6 mm between 14-21 weeks gestational age. Face: Nose and lips, facial profile are normal. Spine: No evidence for spina bifida. Heart: 4-chambered heart is present, with normal ventricular outflow tracts. Diaphragm: Diaphragm is intact. Stomach: Left-sided stomach is present. Kidneys: Borderline left renal pelviectasis measuring 4.8 mm. Normal is less than 5 mm in 2nd trimester, less than 7 mm in 3rd trimester. Cord: 3-vessel cord has orthotopic insertion. Bladder: Normal in size. Extremities: All 4 extremities identified. IMPRESSION: 1. A single living intrauterine gestation with an estimated gestational age of 21 weeks 0 day corresponding to ultrasound MONIKA 05/17/2022. 2. Mild left renal pelviectasis. 3. Otherwise normal anatomic survey. 4. Marginal placenta previa. Recommend ultrasound follow-up. We strive to produce accurate, complete, and clear reports of imaging services. To assist us in improving patient care, this report was composed using standard report templates and voice recognition software. Therefore, it may contain abnormal punctuation, insertions and/or omissions. Occasional wrong-word or sound-alike substitutions may occur. Though we review the report and make efforts to correct it, we do recommend that the report be read carefully in proper context to recognize any text inaccuracies. Dictated by: Reinier Gore M.D. on 01/04/2022 at 17:15 Approved by: Reinier Gore M.D. on 01/04/2022 at 17:20
== END ==
PROVIDERS: PCP Family Medicine; Referring Provider Family Medicine; Visit Provider Family Medicine
DX: O44.22 Partial placenta previa NOS or without hemorrhage, second trimester (principal); Z3A.21 21 weeks gestation of pregnancy
CPT/HCPCS: 76811

== ENCOUNTER → 2022-01-29 10:41 | Outpatient (CLI) | payer OTHER, MEDICAID, SELFPAY ==
--- NOTE | 2022-01-29 10:43 | DI.US.S_ITS ---
PROCEDURE: US OB FOLLOW UP INDICATIONS: FOLLOW-UP OUTSIDE/PRIOR DATING DATA: Last menstrual period (LMP): Unknown. LMP-based estimated date of delivery (MONIKA): Not applicable. First dating scan (date and location): 01/04/2022, [facility]. Estimated date of delivery (MONIKA) from first dating scan: 05/17/2022. TECHNIQUE: Real-time scanning was performed of the fetus, with image documentation. Endovaginal scanning: Not performed COMPARISON: Merged with [facility], OB >= 14 WEEKS FETUS, 01/04/2022, 12:20. FINDINGS: A single living intrauterine gestation is present. Presentation: Breech. Placenta: Placental position is posterior, without previa. Edge of the placenta is now 3.3 cm from the internal os. Amniotic fluid index: 16.5 cm, normal range is 5-24 cm. Single deepest vertical pocket is 5.0 cm. heart rate: 135 beats per minute. Maternal cervical canal: 3.3 cm long. Normal lower limit is 2.5 cm. Estimated gestational age from initial scan: 24 weeks 4 days. Other: No urinary tract dilation visualized on the current exam. AP renal pelvis diameter bilaterally of 3 mm. IMPRESSION: 1. Single living intrauterine in breech presentation, gestational age of 24 weeks 4 days by established dating. 2. No placenta previa demonstrated. 3. No urinary tract dilation demonstrated. Dictated by: Pollo Pena M.D. on 01/29/2022 at 18:20 Approved by: Pollo Pena M.D. on 01/29/2022 at 18:27
== END ==
PROVIDERS: PCP Family Medicine; Referring Provider Family Medicine; Visit Provider Family Medicine
DX: O32.1XX0 Maternal care for breech presentation, not applicable or unspecified (principal); Z3A.24 24 weeks gestation of pregnancy
CPT/HCPCS: 76816

== ENCOUNTER → 2022-02-28 10:02 | Outpatient (CLI) | payer OTHER, MEDICAID, SELFPAY ==
[2022-02-28 11:52] LABS: Add Manual Diff / Slide Review NO; Basophils Absolute Auto 0 /uL (0-100); Basophils Percent Auto 0.3 % (0-2); Eosinophils Absolute Auto 0 /uL (0-450); Eosinophils Percent Auto 0.8 % (2-4); Hematocrit 36.2 % (36-46); Hemoglobin 12.3 g/dL (12.0-16.0); Lymphocytes Absolute Auto 1600 /uL (1100-4500); Lymphocytes Percent Auto 28.5 % (25-40); Mean Corpuscular Hemoglobin 27.9 PG (26-34); Mean Corpuscular Volume 82.2 fL (80-100); Monocytes Absolute Auto 300 /uL (0-900); Monocytes Percent Auto 5.8 % (3-14); Neutrophils Absolute Auto 3600 /uL (1500-7000); Neutrophils Percent Auto 64.6 % (50-75); Platelet Count 202 X10^3/uL (150-400); Red Blood Cell Count 4.41 X10^6/uL (4.0-5.2); Red Cell Distribution Width 15.9 % (11.6-14.8); White Blood Cell Count 5.6 X10^3/uL (4.5-11.0)
[2022-02-28 12:07] LABS: GTT (PREG) 1 Hour PP 50gm Dose 128 mg/dL (76-139)
== END ==
PROVIDERS: PCP Family Medicine; Referring Provider Family Medicine; Visit Provider Family Medicine
DX: Z34.92 Encounter for supervision of normal pregnancy, unspecified, second trimester (principal); Z13.1 Encounter for screening for diabetes mellitus; Z67.11 Type A blood, Rh negative
CPT/HCPCS: 36415; 82950; 85025; 86850

== ENCOUNTER → 2022-04-25 10:48 | Outpatient (CLI) | payer OTHER, MEDICAID, SELFPAY ==
[2022-04-26 20:47] LABS: Strep Grp B PCR POS for Grp B Strep
== END ==
PROVIDERS: PCP Family Medicine; Visit Provider Family Medicine
DX: Z36.85 Encounter for antenatal screening for Streptococcus B (principal)
CPT/HCPCS: 87653

== ENCOUNTER 2022-05-14 19:03 | Inpatient (IN) | payer OTHER, MEDICAID, SELFPAY ==
[2022-05-14 20:12] LABS: COVID19 -Nasal RAPID Negative (Negative)
[2022-05-14 20:21] VITALS: BP 120/68
[2022-05-14] MEDS: DINOPROSTONE VAG (CERVIDIL) 10 MG VAG (21:51)
[2022-05-14 22:16] LABS: Add Manual Diff / Slide Review NO; Basophils Absolute Auto 100 /uL (0-100); Basophils Percent Auto 0.7 % (0-2); Eosinophils Absolute Auto 100 /uL (0-450); Eosinophils Percent Auto 0.6 % (2-4); Hematocrit 32.7 % (36-46); Hemoglobin 10.7 g/dL (12.0-16.0); Lymphocytes Absolute Auto 2500 /uL (1100-4500); Lymphocytes Percent Auto 24.1 % (25-40); Mean Corpuscular HGB Conc 32.6 % (30-36); Mean Corpuscular Hemoglobin 24.4 PG (26-34); Mean Corpuscular Volume 74.8 fL (80-100); Monocytes Absolute Auto 600 /uL (0-900); Monocytes Percent Auto 5.4 % (3-14); Neutrophils Absolute Auto 7300 /uL (1500-7000); Neutrophils Percent Auto 69.2 % (50-75); Platelet Count 230 X10^3/uL (150-400); Red Blood Cell Count 4.37 X10^6/uL (4.0-5.2); Red Cell Distribution Width 17.2 % (11.6-14.8); White Blood Cell Count 10.5 X10^3/uL (4.5-11.0)
[2022-05-14] MEDS: ZOLPIDEM 5 MG TABLET PO (22:37)
[2022-05-15] MEDS: PENICILLIN G POTASSIUM 5,000,000 UNIT in DEXTROSE 5% IN WATER 250 ML 250 UNIT IV (08:27)
[2022-05-15] MEDS: LACTATED RINGERS 1,000 ML 100 ML IV ×3 (08:29→19:40)
--- NOTE | 2022-05-15 08:37 | PM.OBHP.IH.1 ---
OB HPI Date/Time Date of admission: 05/14/22 Date Patient Seen: 05/15/22 Time Patient Seen: 07:50 History of Present Condition Chief complaint: Induction MONIKA Calculator Estimated Delivery Date Method Current WG Current Estimate 05/22/22 Manual 39w 0d Final MONIKA - DAVID Other Estimates 05/16/22 LMP (Uncertain) 39w 6d 05/22/22 Ultrasound #1 39w 0d Estimated Gestational Age (weeks): 39w0d : 2 Para: 1 Narrative: 22yo at 39w0d here for elective IOL. Her has been uncomplicated. She denies any vaginal bleeding, LOF, or contractions. She is feeling her baby move regularly. care: good care, initiated at week # (8) and pounds weight gain (12) Dating criteria OB: LMP confirmed by 1st trimester US Ultrasounds: normal 1st trimester US and normal mid trimester US Obstetrical complications: none Medical complications OB: none Preadmission Labs Last OB Lab Results: Blood Type A Negative 05/14/22 21:38 Antibody Screen Negative 05/14/22 21:38 Hematocrit 32.7 % (36-46) L 05/14/22 21:38 Hemoglobin 10.7 g/dL (12.0-16.0) L 05/14/22 21:38 Hepatitis B Surface Antigen Negative s/c (NEGATIVE) 10/16/21 14:21 Hepatitis C Antibody Negative s/c (NEGATIVE) 10/16/21 14:21 Rubella Antibody 25.8 IU/mL (>15) 10/16/21 14:21 Varicella-Zoster IgG Antibody <135 index (Immune >165) L 10/16/21 14:21 Glucose 1 Hour 128 mg/dL (76-139) 02/28/22 10:07 Group B Streptococcus (PCR) Pos for grp b strep H 04/25/22 10:48 -: Urine: negative External Labs -: Urine: negative Prior (ies) Past Pregnancies Del. Date GA/Weeks Labor Lgth Wt Sex Route Outcome Anesthesia Place Delv Breastfeed Preg Comp Name Unknown 39.2 7 6 lb 10 oz Male vaginal live - full term epidural [facility] 1 month 08/22/12 9 elective [place] [facility] Delivery Date: Last Updated by: Shira Elena MD IUGR at start of , MFM changed MONIKA and IUGR resolved Delivery Date: 08/22/12 Last Updated by: May Walker R.N. Unsure of exact dates. Evaluation Evaluation Baseline heart rate: 120 Variability: Moderate (11-25) monitor accelerations: Present Monitor Decelerations: Absent Contraction Frequency (minutes): 6 Status: Category l Dilation (cm): 2 Effacement (%): 60 Dilation: 1-2 cm Effacement: 60-70% station: -2 Position of cervix: anterior Consistency: soft Culver score: 8 PFSH Medical History (Updated 10/16/21 @ 13:07 by Shira Elena MD) Acne Chronic headaches Depression with anxiety Surgical History (Updated 09/30/19 @ 20:45 by Medina Trujillo) Toenail avulsion Family History (Updated 09/08/19 @ 12:20 by May Walker RN) Mother Depression Gestational diabetes Father Unknown whether patient has any health problems Grandmother No problems noted. Grandfather No problems noted. Grandfather No problems noted. Grandmother No problems noted. Social History marital status: unmarried,living together household members: significant other housing: apartment pets and animals: No education level: high school occupational status: unemployed current occupational exposures/hazards: No special lubna needs: No leisure activities: exercise Smoking Status: Never smoker second hand exposure: No alcohol intake: former substance use type: former substance user and marijuana Meds Home Medications and Allergies Home Medications Medication Instructions Recorded Confirmed Type prenat.vits,trinity,hlj-faqq-hsnkf 1 tab PO DAILY 09/08/19 05/14/22 History Allergies Allergy/AdvReac Type Severity Reaction Status Date / Time No Known Drug Allergies Allergy Verified 05/11/22 11:36 OB Exam Narrative Exam Narrative: Gen: NAD, sitting comfortably in bed, appears well CV: RRR, no murmurs Resp: clear to auscultation bilaterally Abd: soft, nontender, gravid Ext: no edema Objective Labs Result Diagrams: 05/14/22 21:38 Labs: Laboratory Results - last 24 hr 05/14/22 05/14/22 05/14/22 19:20 21:38 21:38 WBC 10.5 RBC 4.37 Hgb 10.7 L Hct 32.7 L MCV 74.8 L MCH 24.4 L MCHC 32.6 RDW 17.2 H Plt Count 230 Neut % (Auto) 69.2 Lymph % (Auto) 24.1 L [place] % (Auto) 5.4 Eos % (Auto) 0.6 L Baso % (Auto) 0.7 Neut # (Auto) 7300 H Lymph # (Auto) 2500 [place] # (Auto) 600 Eos # (Auto) 100 Baso # (Auto) 100 SARS-CoV-2 (PCR) Negative Blood Type A Negative Antibody Screen Negative Assessment and Plan Assessment and Plan Assessment and Plan narrative: 22yo at 39w0d here for elective IOL. uncomplicated. Rh negative, GBS positive. - Expectant management, anticipate - FHT reassuring - GBS positive, start antibiotic prophylaxis now. Plan for ROM once adequate prophylaxis. - Rh negative, collect cord blood for Rh status - Epidural when desired for pain control
[2022-05-15] MEDS: OXYTOCIN PREMIX 30 UNIT/500 ML PLAST..BAG IV (09:23)
[2022-05-15] MEDS: PENICILLIN G POTASSIUM 3,000,000 UNIT/50 ML FROZ.PIGGY 100 UNIT IV ×3 (13:34→21:46)
--- NOTE | 2022-05-15 14:23 | PM.OBPNLAB ---
Date/Time Date Patient Seen: 05/15/22 Time Patient Seen: 14:23 Pain Control Pain control: tolerating well Pelvic Exam Dilation (cm): 4 Effacement (%): 60 station: -2 Contractions Monitor mode: External Pitocin rate (mU/min): 13 Contraction frequency (min): 3 Status status: Category l Heart Rate Baseline: 120 Monitor Accelerations: Present Monitor Decelerations: Absent Monitor Variability: Moderate Assessment and Plan Comments: 22yo at 39w0d here for elective IOL. AROM performed with production of clear fluid after adequate GBS prophylaxis. Plan on epidural once more painful. FHT reassuring.
[2022-05-15] MEDS: FENT 2MCG/ML BUPIV 0.125% EPI 200 MCG/100 ML PLAST..BAG 8 MCG EPIDURAL (15:17)
[2022-05-15] MEDS: diphenhydrAMINE 50 MG/ML VIAL 25 MG IV (20:27)
--- NOTE | 2022-05-15 23:10 | P.PCNOB_ITS ---
Labor & Delivery Delivery date: 05/15/22 Intrapartal Events: None Cervical ripening method: per Cervidil protocol Induction method: per pitocin protocol Delivery augmentation: rupture of membranes Delivery monitor: external FHT and external uterine Route of delivery: L&D Laceration Description: None Quantitative Blood Loss: 25 Anesthesia Type: Epidural Complications: None Narrative: PROCEDURE: at 39w0d presented for elective IOL and was admitted to Labor and Delivery. She received Cervidil for IOL, followed by pitocin. AROM was performed with production of clear fluid after adequate GBS prophylaxis with penicillin. The patient progressed through the 1st stage over 8.5 hours. Pain was controlled with an epidural. The patient progressed through the 2nd stage over 27 minutes and delivered a viable male with APGARs 8/9 at 22:52 via without complications. The cord was cut and clamped after it stopped pulsating. The perineum and vagina were inspected with no lacerations. PREPROCEDURE DIAGNOSIS: Intrauterine at 39w0d GBS positive RH negative POSTPROCEDURE DIAGNOSIS: Intrauterine at 39w0d, delivered Same as preprocedure [place] Baby 1: gender: Male Presentation: vertex Position: Left Occiput Anterior Placenta delivery description: Spontaneous Cord Vessel Description: 3 Vessels and Nuchal Cord (reduced at perineum) score (1 min): 9 score (5 min): 9 weight: 8 lb 3.219 oz Plan for aftercare: Routine care
[2022-05-16] MEDS: ACETAMINOPHEN 325 MG TABLET 650 MG PO ×3 (01:06→14:47)
[2022-05-16] MEDS: IBUPROFEN 600 MG TABLET PO ×3 (01:06→14:47)
[2022-05-16 07:00] VITALS: BP 123/74; PULSE 80; RESP 16; TEMP 36.9
[2022-05-16] MEDS: DERMOPLAST SPRAY 20% 60 ML 1 SPRAY TOP (08:01)
[2022-05-16] MEDS: PRENATAL VIT,CALC/IRON/FOLIC 1 TABLET 1 TAB PO (08:50)
[2022-05-16] MEDS: DOCUSATE 100 MG CAPSULE PO (08:50)
--- NOTE | 2022-05-16 09:07 | P.DS_ITS ---
Discharge Providers Provider Date of admission: 05/14/22 19:03 Discharge Date: 05/16/22 Primary care physician: Shira Elena MD Consults: 05/16/22 23:09 Consult to Party Supply Specialist Routine Comment: Discharge provider: Shira Elena MD Summary Hospital Course Date Patient Seen: 05/16/22 Diagnoses: Intrauterine at 39w0d GBS positive RH negative Hospital Course: The patient presented for elective induction of labor. She received Cervidil followed by Pitocin. AROM was performed after adequate GBS prophylaxis with production of clear fluid. She progressed to complete and had a spontaneous vaginal delivery of a viable baby boy on 05/15/2022. There were no lacerations. The patient tolerated delivery well. there were no complications. At the time of discharge she was voiding, ambulating, passing flatus without difficulty. Her lochia was decreasing appropriately. Her pain was well controlled. She was breast-feeding with good latch. She will follow up in clinic in 6 weeks for check. She is undecided regarding contraception but may consider the IUD. Peripartum Data Delivery Method: Natural Vaginal Laceration Description: None Episiotomy description: None Procedures: Spontaneous vaginal delivery complications: none [place] 1: Gender: Male Disposition of : home Discharge Diagnosis (1) Spontaneous vaginal delivery: Status: Acute Status at Discharge Cognitive/behavioral status at discharge: oriented Functional status at discharge: independent ambulation Overall status at discharge: patient is progressing back to baseline Time Spent with Patient Time attestation: Total time spent providing and/or coordinating discharge services: Objective Labs Result Diagrams: 05/14/22 21:38 Exam Narrative Exam Narrative: Gen: NAD, sitting comfortably in bed, appears well CV: RRR, no murmurs Resp: clear to auscultation bilaterally Abd: soft, appropriately tender, fundus firm and below the umbilicus, nondistended Ext: no edema Discharge Plan Discharge Plan Patient Disposition: Home Discharge orders & Medications Prescriptions: New acetaminophen 325 mg Tablet 650 mg PO Q6HR PRN (Reason: Pain, Mild (1-3)) Qty: 30 0RF docusate sodium 100 mg Capsule 100 mg PO DAILY Qty: 30 0RF ibuprofen 600 mg Tablet 600 mg PO Q6HR PRN (Reason: Pain, Mild (1-3)) Qty: 30 0RF Continued prenat.vits,trinity,smf-sohr-fjsdx Tablet 1 tab PO DAILY Follow up/Referrals: Shira Elena MD [Primary Care Provider] - 6 Weeks Diet/Activity/Treatments Diet: Diet as Tolerated and Regular Skin/Wound/Dressing Care Report to your healthcare provider any signs of infection, such as:: chills, fever, increased pain and unusual drainage Visit Report/Discharge Packet Instructions: DI for Labor and Delivery, Vaginal Visit Report Forms: Patient Portal/API, Stroke Signs & Symptoms Discharge Data Primary Care Provider: Shira Elena
[2022-05-16] MEDS: RHO(D) IMMUNE GLOBULIN 1,500 UNIT SYRINGE 1500 UNIT IM (10:23)
[2022-05-17] MEDS: ACETAMINOPHEN 325 MG TABLET 650 MG PO (01:26)
[2022-05-17] MEDS: IBUPROFEN 600 MG TABLET PO ×2 (01:26→08:30)
--- NOTE | 2022-05-17 08:13 | PM.OBPN.1 ---
Subjective - OB Subjective Interval history: Pt doing well this morning. Does have some nipple pain, will trial Lanolin to help. Pt stayed last night due to baby not yet having a BM. No other concerns. Now has had a BM. See discharge note from yesterday. Exam Narrative Exam Narrative: Gen: NAD, sitting comfortably in bed, appears well CV: RRR, no murmurs Resp: clear to auscultation bilaterally Abd: soft, appropriately tender, fundus firm and below the umbilicus, nondistended Ext: no edema Objective Labs Result Diagrams: 05/14/22 21:38 Labs: Laboratory Results - last 24 hr 05/16/22 09:44 Maternal Bleed Negative Assessment & Plan Assessment and Plan (1) Spontaneous vaginal delivery: Status: Acute Time Spent With Patient Time: Total time spent is greater than 50% in coordination of care (as documented) at patient's floor/unit and/or counseling patient: Time with patient: less than 15 minutes
[2022-05-17] MEDS: DOCUSATE 100 MG CAPSULE PO (08:29)
[2022-05-17] MEDS: LANOLIN OINT 7 GM 1 APPLIC TOP (08:29)
[2022-05-17] MEDS: PRENATAL VIT,CALC/IRON/FOLIC 1 TABLET 1 TAB PO (08:29)
== END 2022-05-17 10:12 | disposition home or self-care (01) | DRG 560 ==
PROVIDERS: Admitting Provider Family Medicine; PCP Family Medicine; Referring Provider Family Medicine; Visit Provider Family Medicine
DX: O99.824 Streptococcus B carrier state complicating childbirth (principal); Z3A.39 39 weeks gestation of pregnancy; Z37.0 Single live birth; Z20.822 Contact with and (suspected) exposure to COVID-19
CPT/HCPCS: 36415; 59050; 59200; 59409; 85025; 85461; 86850; 86900; 86901; 87635; C9803; G0379; J1200; J2540; J2590; J2790

== ENCOUNTER → 2024-07-13 12:15 | Outpatient (CLI) | payer OTHER, SELFPAY ==
[2024-07-13 13:28] LABS: Add Manual Diff / Slide Review NO; Basophils Absolute Auto 0 /uL (0-100); Basophils Percent Auto 0.4 % (0-2); Eosinophils Absolute Auto 100 /uL (0-450); Eosinophils Percent Auto 0.6 % (2-4); Hematocrit 40.2 % (36-46); Hemoglobin 13.3 g/dL (12.0-16.0); Lymphocytes Absolute Auto 2600 /uL (1100-4500); Lymphocytes Percent Auto 29.8 % (25-40); Mean Corpuscular HGB Conc 33.2 % (30-36); Mean Corpuscular Hemoglobin 27.7 PG (26-34); Mean Corpuscular Volume 83.6 fL (80-100); Monocytes Absolute Auto 300 /uL (0-900); Monocytes Percent Auto 3.8 % (3-14); Neutrophils Absolute Auto 5600 /uL (1500-7000); Neutrophils Percent Auto 65.4 % (50-75); Platelet Count 279 X10^3/uL (150-400); Red Cell Distribution Width 14.3 % (11.6-14.8); White Blood Cell Count 8.6 X10^3/uL (4.5-11.0)
[2024-07-13 13:32] LABS: Appearance Urine UA CLEAR; Bilirubin Urine UA NEGATIVE (NEGATIVE); Color Urine UA YELLOW; Glucose Urine UA NEGATIVE (Negative); Ketones Urine UA 1+ (NEGATIVE); Leukocyte Esterase Urine UA NEGATIVE (NEGATIVE); Nitrite Urine UA NEGATIVE (Negative); Occult Blood Urine UA NEGATIVE (Negative); Protein Urine UA NEGATIVE (Negative); Specific Gravity Urine UA >=1.030 (1.000-1.035); Urobilinogen Urine UA 0.2 E.U./dL (0.2); pH Urine UA 5.5 (4.5-8.0)
[2024-07-13 14:21] LABS: Hemoglobin A1C% w Est Avg Glu 4.9 % (4.0-6.0)
[2024-07-13 15:46] LABS: Hepatitis B Surface Antigen NEGATIVE s/c (NEGATIVE); Rubella Antibody IgG 18.5 IU/mL (>15)
[2024-07-13 16:06] LABS: HIV 1 & 2 Ab/Ag 4th Gen Combo NEGATIVE (NEGATIVE); Hep C Virus Ab w/Reflex Quant NEGATIVE s/c (NEGATIVE)
[2024-07-14 05:40] LABS: RPR Screen Non Reactive (Non Reactive)
[2024-07-14 08:36] LABS: Varicella IgG Antibody Non Reactive (Non Reactive)
== END ==
PROVIDERS: PCP Physician Assistant; Referring Provider Family Medicine; Visit Provider Family Medicine
DX: Z34.80 Encounter for supervision of other normal pregnancy, unspecified trimester (principal); E66.01 Morbid (severe) obesity due to excess calories
CPT/HCPCS: 80055; 81003; 83036; 86787; 86803; 86850; 86900; 86901; 87086; 87389

== ENCOUNTER → 2024-09-09 10:53 | Outpatient (CLI) | payer OTHER, SELFPAY ==
[2024-09-11 18:36] LABS: AFP, Serum 21.5 ng/mL (.); Estriol, Free 0.85 ng/mL (.); Inhibin A, MoM 1.31 (.); Maternal Ethnicity Caucasian (.); Maternal Weight 273 lbs (.); Number of Fetuses No (.); OSBR Risk 1 IN 10000 (.); Results Report (.); Test Results *Screen Negative* (.); hCG, MoM 0.98 (.); hCG, Serum 26419 mIU/mL (.)
== END ==
PROVIDERS: PCP Physician Assistant; Referring Provider Family Medicine; Visit Provider Family Medicine
DX: Z34.80 Encounter for supervision of other normal pregnancy, unspecified trimester (principal)
CPT/HCPCS: 36415; 82105; 82677; 84702; 86336

== ENCOUNTER → 2024-10-07 11:58 | Outpatient (CLI) | payer OTHER, SELFPAY ==
--- NOTE | 2024-10-07 11:59 | DI.US.S_ITS ---
PROCEDURE: US OB >= 14 WEEKS FETUS INDICATIONS: anatomy scan (20-wk) OUTSIDE/PRIOR DATING DATA: Last menstrual period (LMP): 05/18/2024 LMP-based estimated date of delivery (MONIKA): 02/22/2025 (working MONIKA) First dating scan (date and location): 07/13/2024 (not available) TECHNIQUE: Real-time scanning was performed of the fetus, with image documentation and biometric measurements. COMPARISON: None FINDINGS: General: A single living intrauterine gestation is present. Presentation: Breech. Placenta: Placental position is posterior , without previa. Amniotic fluid index: 11.1 cm, normal range is 5-24 cm. Single deepest vertical pocket is 3.7 cm. heart rate: 144 beats per minute. Maternal cervical canal: 3.5 cm long. Normal lower limit is 2.5 cm. biometrics: Biparietal diameter: 4.7 cm, 20 weeks and 1 day Head circumference: 18 cm, 20 weeks and 3 days Abdominal circumference: 16 cm, 21 weeks and 1 day Femur length: 3.3 cm, 20 weeks and 1 day Clinically estimated gestational age: 20 weeks and 2 days Composite gestational age from present scan: 20 weeks and 3 days Estimated weight and percentile: 369 g, 67% Anatomic survey: Neuro: Ventricles are non-dilated at less than 10 mm. Cisterna magna is normal at 3-11 mm. Cerebellum is normal in size and morphology. Nuchal skin fold: Normal at less than 6 mm between 14-21 weeks gestational age. Face: Nose and lips, facial profile are normal. Spine: No evidence for spina bifida. Heart: 4-chambered heart is present, with normal ventricular outflow tracts. Diaphragm: Diaphragm is intact. Stomach: Left-sided stomach is present. Kidneys: No hydronephrosis. Normal is less than 5 mm in 2nd trimester, less than 7 mm in 3rd trimester. Cord: 3-vessel cord has orthotopic insertion. Bladder: Normal in size. Extremities: All 4 extremities identified. IMPRESSION: Living intrauterine gestation in breech presentation. Normal ANDREA. EFW within normal limits, 62%. No significant abnormalities on routine anatomic survey. Dictated by: Chava Arriola M.D. on 10/07/2024 at 14:40 Approved by: Chava Arriola M.D. on 10/07/2024 at 14:45
== END ==
PROVIDERS: PCP Physician Assistant; Referring Provider Family Medicine; Visit Provider Family Medicine
DX: Z34.82 Encounter for supervision of other normal pregnancy, second trimester (principal); Z3A.20 20 weeks gestation of pregnancy
CPT/HCPCS: 76811

== ENCOUNTER → 2024-12-02 10:26 | Outpatient (CLI) | payer OTHER, SELFPAY ==
[2024-12-02 13:11] LABS: Add Manual Diff / Slide Review NO; Basophils Absolute Auto 0 /uL (0-100); Basophils Percent Auto 0.2 % (0-2); Eosinophils Absolute Auto 0 /uL (0-450); Eosinophils Percent Auto 0.5 % (2-4); Hematocrit 35.7 % (36-46); Hemoglobin 12.3 g/dL (12.0-16.0); Lymphocytes Absolute Auto 2000 /uL (1100-4500); Lymphocytes Percent Auto 20.3 % (25-40); Mean Corpuscular HGB Conc 34.6 % (30-36); Mean Corpuscular Volume 83.8 fL (80-100); Monocytes Absolute Auto 400 /uL (0-900); Monocytes Percent Auto 3.8 % (3-14); Neutrophils Absolute Auto 7300 /uL (1500-7000); Neutrophils Percent Auto 75.2 % (50-75); Platelet Count 225 X10^3/uL (150-400); Red Blood Cell Count 4.25 X10^6/uL (4.0-5.2); Red Cell Distribution Width 15.7 % (11.6-14.8); White Blood Cell Count 9.7 X10^3/uL (4.5-11.0)
[2024-12-02 13:33] LABS: GTT (PREG) 1 Hour PP 50gm Dose 105 mg/dL (76-139)
== END ==
LOC: LAB 10:27
PROVIDERS: PCP Physician Assistant; Referring Provider Family Medicine; Visit Provider Family Medicine
DX: Z34.80 Encounter for supervision of other normal pregnancy, unspecified trimester (principal)
CPT/HCPCS: 82950; 85025; 86850

== ENCOUNTER → 2024-12-30 11:42 | Outpatient (CLI) | payer OTHER, SELFPAY ==
--- NOTE | 2024-12-30 11:43 | DI.US.S_ITS ---
PROCEDURE: US OB LIMITED INDICATIONS: Obesity OUTSIDE/PRIOR DATING DATA: Last menstrual period (LMP): 05/18/2024. LMP-based estimated date of delivery (MONIKA): 02/22/2025. First dating scan (date and location): 07/13/2024. Estimated date of delivery (MONIKA) from first dating scan: 02/20/2025. The calculations are made using the working MONIKA of 02/22/2025. TECHNIQUE: Real-time scanning was performed of the fetus, with image documentation. Endovaginal scanning: No COMPARISON: None. FINDINGS: A single living intrauterine gestation is present. Presentation: Cephalic. Placenta: Placental position is posterior, without previa. Amniotic fluid index: 13.8 cm, normal range is 5-24 cm. Single deepest vertical pocket is 4.9 cm. heart rate: 128 beats per minute. Maternal cervical canal: 4.0 cm long. Normal lower limit is 2.5 cm. BPD: 8.2 cm, 32 week 6 day HC: 29.4 cm, 32 week 3 day AC: 28.9 cm, 32 week 6 day FL: 6.2 cm, 32 week 2 day Clinically estimated gestational age: 32 week 2 day Estimated gestational age from initial scan: 32 week 4 day. EFW: 3018 g, 51 percentile IMPRESSION: Single live intrauterine consistent with 32 week 4 day gestation by current ultrasound. Approved by: Tunde Renner M.D. on 01/01/2025 at 16:15
== END ==
LOC: US 11:42
PROVIDERS: PCP Physician Assistant; Referring Provider Family Medicine; Visit Provider Family Medicine
DX: O99.213 Obesity complicating pregnancy, third trimester (principal); E66.01 Morbid (severe) obesity due to excess calories; Z3A.32 32 weeks gestation of pregnancy
CPT/HCPCS: 76815